=== PATIENT | female | born 1990 | race Caucasian/White ===

== ENCOUNTER 2018-09-20 12:59 | Inpatient (IN) ==
--- NOTE | 2018-09-20 13:07 | Emergency Department Note ---
Disposition Clinical Impression: DKA (diabetic ketoacidoses) Qualifiers: Diabetes mellitus type: type 1 Diabetes mellitus complication detail: without coma Qualified Code(s): E10.10 - Type 1 diabetes mellitus with ketoacidosis without coma Disposition: Admitted As Inpatient Condition: Fair Referrals: NONE,PCP [Primary Care Provider] - Forms: ED Satisfaction Letter, Work/School Release Time of Disposition: 17:17 General Adult HPI - General Stated complaint: Elevated Blood Glucose CP Time Seen by Provider: 09/20/18 13:03 Nursing Notes Reviewed: Yes Vital Signs Reviewed: Yes - History of Present Illness HPI Narrative: 28yo female presents from home for evaluation of elevated blood glucose and chest pain. Both onset this morning upon awakening. Patient typically wakes with blood glucose in the 60s. She was 409 this morning. She uses an insulin pump. Her site this morning was in the left lateral thigh and was on day 2; she had no issues with this site yesterday. She has had no issues with the tubing and the insulin she was using was not and had successfully controlled her blood sugars on days previous. She placed a new site on the right abdomen and her repeat blood glucose was in the 570's. She has polydipsia, polyuria, and nause. Urine dip ketones at home were elevated. Prior to arrival to this ED, BG was in the 460's. At no time today did patient give a correction bolus. She has been receiving her previously programmed basal rates. She was afraid to provide correction bolus with active insulin on board as she did not want to push herself into a low. She did not have any unusual meals last night. Her primary concern is DKA. Patient chest pain is left sided, sharp, stabbing, non-radiating. Worse with deep inspiration. She notes she pulled weeds yesterday in her yard. PMH: DM I on humalog insulin. Patient was previously diagnosed and treated as DM II by per PCP. Re-diagnosed as DM I by endocrinology. ROS: Pos: left sided CP, nausea, hyperglycemia, ketonuria, polydipsia, polyuria Neg: fever, chills, vomiting, abdominal pain, dyspnea, trauma, painful urination, concerns for skin infection or wound - Related Data Home Medications Medication Instructions Recorded Confirmed FLUoxetine HCl [Prozac] 40 mg PO DAILY 02/07/16 02/08/16 Previous Rx's Medication Instructions Recorded Blood-Glucose Meter, Drum-Type 1 each QID #1 kit 02/08/16 [Accu-Chek] metFORMIN [Glucophage] 500 mg PO BIDWM #60 tablet 02/08/16 Allergies Allergy/AdvReac Type Severity Reaction Status Date / Time No Known Allergies Allergy Verified 02/07/16 21:04 All systems ED: reviewed and negative except as stated. Review of Systems: As Per HPI Past Medical History - Past Medical History Medical history: Reports: no medical history Surgical history: Reports: Psychiatric history: Reports: depression SENIOR RECRUITMENT CONSULTANT history: Reports: no SENIOR RECRUITMENT CONSULTANT history - Social History Smoking Status: Current every day smoker Smokeless Tobacco Status: No Alcohol use: Reports: occasionally Drug use: Reports: none Physical Exam Vital Signs Reviewed General: Patient is alert, oriented, and in no acute distress; she is well- appearing, nontoxic, comfortable, conversant, pleasant. Head: atraumatic, normocephalic Eye: normal appearance, PERRL, EOMI, no scleral icterus, no conjunctival injection ENT: mucous membranes moist, normal external ear exam Neck: normal inspection, trachea midline, full ROM Chest: normal inspection, symmetric chest rise. Chest pain to palpation of left rib for at the costosternal margin. Respiratory: Good respiratory effort. Bilateral breath sounds are clear without wheezing, crackles, or rhonchi. Cardiovascular: Regular rate and rhythm. No clicks, rubs, gallops, or murmors. Normal heart sounds. Abdomen: Bowel sounds present normoactive. Abdomen is soft, nondistended, and nontender. No guarding or rebound. No organomegaly noted. Musculoskeletal: Spontaneously moving all extremities. Skin: warm, dry, intact. Neuro: GCS 15. No focal neurologic deficits observed. Psych: Patient's affect is appropriate for situation. Course Course Narrative: POC glucose on arrival: 421. Palpation of left for 4 costosternal margin exactly reproduces patient's chest pain. Osteopathicly suspect left rib 4 is anteriorly subluxed. Patient is castro. She has been outside; no personal or family history of adrenal problems. There is a family history of thyroid disease; will check TSH. EKG dated 09/20/18 at 13:43 interpreted as sinus tachycardia with rate 119. [place] 152, QRS 104, QTC 49. Normal axis. Nonspecific ST-T changes. No evidence of WPW, Brugada, or Wellens syndrome. No previous EKG for comparison. 2L 0.9%NS IVF now. Will await labs including potassium. Patient is in DKA. She clinically is well appearing. VBG pH is 7.2. Anion gap is 20. Serum ketones greater than 2.0. Potassium is 4.6. Will provide 40 mEq by mouth followed by 20 mEq within a 1 L bag run at 150% maintenance. WBC 25.0. UA not concernig for UTI. XR chest unremarkable. 1L IVF 0.9%NS with 20mEq K at 150% maint rate. Insulin drip at 0.1u/kg/hr I discussed with the patient and her mother in detail the meaning of DKA, pathophysiology as relates to serum glucose, insulin, T2 generation, and subsequent acidosis. I discussed microvascular disease associated with prolonged hyperglycemia and the need for appropriate glycemic control. All questions were answered. Patient continues to appear well and is of good spirits. I discussed the above with the admitting hospitalist, Dr. Enrique, who agrees to set the patient for continued evaluation monitoring of her DKA. Chest X-Ray 09/20/18 13:20 IMPRESSION: 1. No active pulmonary disease. D/ / Audi Malcolm MD / Audi Malcolm MD Interpreting Provider: Audi Malcolm MD Vital Signs Temperature 97.9 F 09/20/18 13:03 Pulse Rate 123 09/20/18 13:03 Respiratory Rate 18 09/20/18 13:03 Blood Pressure 121/80 09/20/18 13:03 O2 Sat by Pulse Oximetry 98 09/20/18 13:03 Temperature 97.9 F 09/20/18 13:03 Pulse Rate 116 09/20/18 16:59 Respiratory Rate 20 09/20/18 16:59 Blood Pressure 108/55 09/20/18 16:59 O2 Sat by Pulse Oximetry 97 09/20/18 16:59 Oxygen Delivery Oxygen Delivery Room Air Medical Decision Making - Lab Data Result diagrams: 09/20/18 13:35 09/20/18 13:35 Lab Results 09/20/18 09/20/18 09/20/18 Range/Units 13:33 13:33 13:35 WBC 25.0 H (4.3-11.1) K/mcL RBC 5.07 H (3.82-4.97) M/mcL Hgb 15.3 (11.5-15.4) g/dL Hct 47.8 H (35.3-44.9) % MCV 94.3 (83.0-100.0) fL MCH 30.2 (28.0-33.3) pg MCHC 32.0 (31.6-35.5) g/dL RDW 11.9 (11.5-14.5) % Plt Count 339 (140-400) K/mcL MPV 9.6 (9.4-12.4) fL Seg Neutrophils % 96.0 % Lymphocytes % 4.0 % Neutrophils # 24.0 H (1.6-8.9) K/mcL Lymphocytes # 1.0 (0.6-4.6) K/mcL Reactive Lymphocytes Present A (Not Present) Platelet Estimate Normal (Normal) VBG pH (7.32-7.42) pH Units VBG pCO2 (41-51) mmHg VBG pO2 (25-50) mmHg VBG HCO3 (21-27) mEq/L Sodium (136-145) mEq/L Potassium (3.5-5.1) mEq/L Chloride (98-107) mEq/L Carbon Dioxide (23-29) mEq/L BUN (6-20) mg/dL Creatinine (0.60-1.20) mg/dL Est GFR ( Amer) (> 60) Est GFR (Non-Af Amer) (> 60) BUN/Creatinine Ratio (6-26) Glucose (70-105) mg/dL Calculated Osmolality (280-300) Lactic Acid (0.5-2.2) mmol/L Calcium (8.6-10.3) mg/dL Troponin I (< 0.04) ng/mL Beta-Hydroxybutyric Acd (0.02-0.27) mmol/L TSH (0.340-5.600) mcIU/mL Urine Color Yellow (Yellow) Urine Clarity Clear (Clear) Urine pH 5.5 (5.0-8.0) pH Units Ur Specific [place] > 1.030 H (1.010-1.025) Urine Protein Negative (Neg-Trace) mg/dL Urine Glucose (UA) >=1000 H (Normal) mg/dL Urine Ketones >=160 H (Negative) mg/dL Urine Blood Negative (Negative) Urine Nitrite Negative (Negative) Urine Bilirubin Negative (Negative) Urine Urobilinogen Normal (Normal) mg/dL Ur Leukocyte Esterase Negative (Negative) Ur Culture Indicated? NO (NO) Urine Test Negative (Negative) Urine Opiates Screen (Qwcomq=606) ng/mL Ur Barbiturates Screen (Ycvnvx=128) ng/mL Ur Phencyclidine Scrn (Cutoff=25) ng/mL Ur Amphetamines Screen (Dqeidl=3013) ng/mL U Benzodiazepines Scrn (Wvvxki=408) ng/mL Urine Cocaine Screen (Cutoff= 300) ng/mL U Marijuana (THC) Screen (Cutoff = 50) ng/mL Ur Drug Screen Interp Person Notif of Crit 09/20/18 09/20/18 09/20/18 Range/Units 13:35 13:35 13:50 WBC (4.3-11.1) K/mcL RBC (3.82-4.97) M/mcL Hgb (11.5-15.4) g/dL Hct (35.3-44.9) % MCV (83.0-100.0) fL MCH (28.0-33.3) pg MCHC (31.6-35.5) g/dL RDW (11.5-14.5) % Plt Count (140-400) K/mcL MPV (9.4-12.4) fL Seg Neutrophils % % Lymphocytes % % Neutrophils # (1.6-8.9) K/mcL Lymphocytes # (0.6-4.6) K/mcL Reactive Lymphocytes (Not Present) Platelet Estimate (Normal) VBG pH 7.20 L* (7.32-7.42) pH Units VBG pCO2 44 (41-51) mmHg VBG pO2 80 H (25-50) mmHg VBG HCO3 17 L (21-27) mEq/L Sodium 136 (136-145) mEq/L Potassium 4.6 (3.5-5.1) mEq/L Chloride 97 L (98-107) mEq/L Carbon Dioxide 18 L (23-29) mEq/L BUN 19 (6-20) mg/dL Creatinine 0.86 (0.60-1.20) mg/dL Est GFR ( Amer) > 60 (> 60) Est GFR (Non-Af Amer) > 60 (> 60) BUN/Creatinine Ratio 22 (6-26) Glucose 448 H (70-105) mg/dL Calculated Osmolality 304 H (280-300) Lactic Acid (0.5-2.2) mmol/L Calcium 9.7 (8.6-10.3) mg/dL Troponin I (< 0.04) ng/mL Beta-Hydroxybutyric Acd > 2.00 H (0.02-0.27) mmol/L TSH 1.251 (0.340-5.600) mcIU/mL Urine Color (Yellow) Urine Clarity (Clear) Urine pH (5.0-8.0) pH Units Ur Specific [place] (1.010-1.025) Urine Protein (Neg-Trace) mg/dL Urine Glucose (UA) (Normal) mg/dL Urine Ketones (Negative) mg/dL Urine Blood (Negative) Urine Nitrite (Negative) Urine Bilirubin (Negative) Urine Urobilinogen (Normal) mg/dL Ur Leukocyte Esterase (Negative) Ur Culture Indicated? (NO) Urine Test (Negative) Urine Opiates Screen (Mqbfwk=742) ng/mL Ur Barbiturates Screen (Ypchib=605) ng/mL Ur Phencyclidine Scrn (Cutoff=25) ng/mL Ur Amphetamines Screen (Qpzmuc=5251) ng/mL U Benzodiazepines Scrn (Kihawz=299) ng/mL Urine Cocaine Screen (Cutoff= 300) ng/mL U Marijuana (THC) Screen (Cutoff = 50) ng/mL Ur Drug Screen Interp Person Notif of Amber PIERRE 09/20/18 09/20/18 09/20/18 Range/Units 14:35 14:35 16:13 WBC (4.3-11.1) K/mcL RBC (3.82-4.97) M/mcL Hgb (11.5-15.4) g/dL Hct (35.3-44.9) % MCV (83.0-100.0) fL MCH (28.0-33.3) pg MCHC (31.6-35.5) g/dL RDW (11.5-14.5) % Plt Count (140-400) K/mcL MPV (9.4-12.4) fL Seg Neutrophils % % Lymphocytes % % Neutrophils # (1.6-8.9) K/mcL Lymphocytes # (0.6-4.6) K/mcL Reactive Lymphocytes (Not Present) Platelet Estimate (Normal) VBG pH (7.32-7.42) pH Units VBG pCO2 (41-51) mmHg VBG pO2 (25-50) mmHg VBG HCO3 (21-27) mEq/L Sodium (136-145) mEq/L Potassium (3.5-5.1) mEq/L Chloride (98-107) mEq/L Carbon Dioxide (23-29) mEq/L BUN (6-20) mg/dL Creatinine (0.60-1.20) mg/dL Est GFR ( Amer) (> 60) Est GFR (Non-Af Amer) (> 60) BUN/Creatinine Ratio (6-26) Glucose (70-105) mg/dL Calculated Osmolality (280-300) Lactic Acid 1.6 (0.5-2.2) mmol/L Calcium (8.6-10.3) mg/dL Troponin I < 0.03 (< 0.04) ng/mL Beta-Hydroxybutyric Acd (0.02-0.27) mmol/L TSH (0.340-5.600) mcIU/mL Urine Color (Yellow) Urine Clarity (Clear) Urine pH (5.0-8.0) pH Units Ur Specific [place] (1.010-1.025) Urine Protein (Neg-Trace) mg/dL Urine Glucose (UA) (Normal) mg/dL Urine Ketones (Negative) mg/dL Urine Blood (Negative) Urine Nitrite (Negative) Urine Bilirubin (Negative) Urine Urobilinogen (Normal) mg/dL Ur Leukocyte Esterase (Negative) Ur Culture Indicated? (NO) Urine Test (Negative) Urine Opiates Screen Negative (Pkrtsi=958) ng/mL Ur Barbiturates Screen Negative (Quxcpb=434) ng/mL Ur Phencyclidine Scrn Negative (Cutoff=25) ng/mL Ur Amphetamines Screen Negative (Bvmioy=6740) ng/mL U Benzodiazepines Scrn Negative (Tymkme=554) ng/mL Urine Cocaine Screen Negative (Cutoff= 300) ng/mL U Marijuana (THC) Screen Negative (Cutoff = 50) ng/mL Ur Drug Screen Interp See Below Person Notif of Crit 09/20/18 Range/Units 17:04 WBC (4.3-11.1) K/mcL RBC (3.82-4.97) M/mcL Hgb (11.5-15.4) g/dL Hct (35.3-44.9) % MCV (83.0-100.0) fL MCH (28.0-33.3) pg MCHC (31.6-35.5) g/dL RDW (11.5-14.5) % Plt Count (140-400) K/mcL MPV (9.4-12.4) fL Seg Neutrophils % % Lymphocytes % % Neutrophils # (1.6-8.9) K/mcL Lymphocytes # (0.6-4.6) K/mcL Reactive Lymphocytes (Not Present) Platelet Estimate (Normal) VBG pH 7.25 L (7.32-7.42) pH Units VBG pCO2 24 L (41-51) mmHg VBG pO2 178 H (25-50) mmHg VBG HCO3 11 L (21-27) mEq/L Sodium (136-145) mEq/L Potassium (3.5-5.1) mEq/L Chloride (98-107) mEq/L Carbon Dioxide (23-29) mEq/L BUN (6-20) mg/dL Creatinine (0.60-1.20) mg/dL Est GFR ( Amer) (> 60) Est GFR (Non-Af Amer) (> 60) BUN/Creatinine Ratio (6-26) Glucose (70-105) mg/dL Calculated Osmolality (280-300) Lactic Acid (0.5-2.2) mmol/L Calcium (8.6-10.3) mg/dL Troponin I (< 0.04) ng/mL Beta-Hydroxybutyric Acd (0.02-0.27) mmol/L TSH (0.340-5.600) mcIU/mL Urine Color (Yellow) Urine Clarity (Clear) Urine pH (5.0-8.0) pH Units Ur Specific [place] (1.010-1.025) Urine Protein (Neg-Trace) mg/dL Urine Glucose (UA) (Normal) mg/dL Urine Ketones (Negative) mg/dL Urine Blood (Negative) Urine Nitrite (Negative) Urine Bilirubin (Negative) Urine Urobilinogen (Normal) mg/dL Ur Leukocyte Esterase (Negative) Ur Culture Indicated? (NO) Urine Test (Negative) Urine Opiates Screen (Nwhbqz=434) ng/mL Ur Barbiturates Screen (Dvxupv=778) ng/mL Ur Phencyclidine Scrn (Cutoff=25) ng/mL Ur Amphetamines Screen (Qsrjnr=8885) ng/mL U Benzodiazepines Scrn (Hiiwrv=465) ng/mL Urine Cocaine Screen (Cutoff= 300) ng/mL U Marijuana (THC) Screen (Cutoff = 50) ng/mL Ur Drug Screen Interp Person Notif of Crit
[2018-09-20] MEDS ORDERED: 0.9 % Sodium Chloride 1,000 ML IVC ONE ×2 (13:08→14:14)
[2018-09-20] MEDS ORDERED: Ondansetron 4 MG/2 ML VIAL IVP ONE (13:35)
[2018-09-20 13:44] LABS: Bilirubin,Urine Negative (Negative); Blood,Urine Negative (Negative); Clarity,Urine Clear (Clear); Color,Urine Yellow (Yellow); Glucose,Urine (UA) >=1000 mg/dL (Normal); Ketones,Urine >=160 mg/dL (Negative); Leukocyte Esterase,Urine Negative (Negative); Nitrite,Urine Negative (Negative); PH,Urine 5.5 pH Units (5.0-8.0); Protein,Urine Negative (Neg-Trace); Specific Gravity,Urine > 1.030 (1.010-1.025); Urobilinogen,Urine Normal (Normal)
[2018-09-20 13:54] LABS: Hematocrit 47.8 % (35.3-44.9); Hemoglobin 15.3 g/dL (11.5-15.4); Mean Corpuscular Hemoglobin 30.2 pg (28.0-33.3); Mean Corpuscular Volume 94.3 fL (83.0-100.0); Mean Platelet Volume 9.6 fL (9.4-12.4); Platelet Count 339 K/mcL (140-400); Red Blood Count 5.07 M/mcL (3.82-4.97); Red Cell Distribution Width 11.9 % (11.5-14.5)
[2018-09-20 13:56] LABS: VBG HCO3 17 mEq/L (21-27); VBG PCO2 44 mmHg (41-51); VBG PO2 80 mmHg (25-50)
--- NOTE | 2018-09-20 13:56 | Emergency Department Note ---
Disposition Clinical Impression: DKA (diabetic ketoacidoses) Qualifiers: Diabetes mellitus type: type 1 Diabetes mellitus complication detail: without coma Qualified Code(s): E10.10 - Type 1 diabetes mellitus with ketoacidosis without coma Disposition: Admitted As Inpatient Condition: Fair Time of Disposition: 14:20 General Adult HPI - General Chief complaint: ED General Medical Stated complaint: Elevated Blood Glucose CP Time Seen by Provider: 09/20/18 13:03 Source: patient, family Limitations: no limitations - History of Present Illness Pain Scale: 8 - Related Data Home Medications Medication Instructions Recorded Confirmed Insulin LISPRO [HumaLOG] 0 - 70 unit SQ DAILY PRN 09/20/18 09/20/18 Previous Rx's Medication Instructions Recorded Insulin Glargine,Hum.rec.anlog 30 unit SQ HS #5 insuln.pen 09/21/18 [Lantus Solostar] Insulin LISPRO [Humalog Kwikpen 1 unit SQ TIDAC #5 pkg 09/21/18 U-100] Allergies Allergy/AdvReac Type Severity Reaction Status Date / Time No Known Allergies Allergy Verified 09/20/18 21:43 Past Medical History - Past Medical History Medical history: Reports: diabetes Surgical history: Reports: Psychiatric history: Reports: depression HARBOR MASTER history: Reports: no HARBOR MASTER history - Social History Smoking Status: Current every day smoker Smokeless Tobacco Status: No Alcohol use: Reports: occasionally Drug use: Reports: none Physical Exam - General Limitations: no limitations General appearance: alert, in no apparent distress Course Vital Signs Temperature 97.9 F 09/20/18 13:03 Pulse Rate 123 09/20/18 13:03 Respiratory Rate 18 09/20/18 13:03 Blood Pressure 121/80 09/20/18 13:03 O2 Sat by Pulse Oximetry 98 09/20/18 13:03 Temperature 98.7 F 09/21/18 11:06 Pulse Rate 103 09/21/18 11:06 Respiratory Rate 16 09/21/18 11:06 Blood Pressure 115/59 09/21/18 11:06 O2 Sat by Pulse Oximetry 97 09/21/18 11:06 Oxygen Delivery Oxygen Delivery Room Air Medical Decision Making - Lab Data Result diagrams: 09/21/18 02:48 09/21/18 02:48 Lab Results 05/20/19 05/20/19 05/20/19 Range/Units 13:33 13:33 13:35 WBC 25.0 H (4.3-11.1) K/mcL RBC 5.07 H (3.82-4.97) M/mcL Hgb 15.3 (11.5-15.4) g/dL Hct 47.8 H (35.3-44.9) % MCV 94.3 (83.0-100.0) fL MCH 30.2 (28.0-33.3) pg MCHC 32.0 (31.6-35.5) g/dL RDW 11.9 (11.5-14.5) % Plt Count 339 (140-400) K/mcL MPV 9.6 (9.4-12.4) fL Seg Neutrophils % 96.0 % Lymphocytes % 4.0 % Neutrophils # 24.0 H (1.6-8.9) K/mcL Lymphocytes # 1.0 (0.6-4.6) K/mcL Reactive Lymphocytes Present A (Not Present) Platelet Estimate Normal (Normal) VBG pH (7.32-7.42) pH Units VBG pCO2 (41-51) mmHg VBG pO2 (25-50) mmHg VBG HCO3 (21-27) mEq/L Sodium (136-145) mEq/L Potassium (3.5-5.1) mEq/L Chloride (98-107) mEq/L Carbon Dioxide (23-29) mEq/L BUN (6-20) mg/dL Creatinine (0.60-1.20) mg/dL Est GFR ( Amer) (> 60) Est GFR (Non-Af Amer) (> 60) BUN/Creatinine Ratio (6-26) Glucose (70-105) mg/dL Calculated Osmolality (280-300) Lactic Acid (0.5-2.2) mmol/L Calcium (8.6-10.3) mg/dL Phosphorus (2.7-4.5) mg/dL Troponin I (< 0.04) ng/mL Beta-Hydroxybutyric Acd (0.02-0.27) mmol/L TSH (0.340-5.600) mcIU/mL Urine Color Yellow (Yellow) Urine Clarity Clear (Clear) Urine pH 5.5 (5.0-8.0) pH Units Ur Specific [place] > 1.030 H (1.010-1.025) Urine Protein Negative (Neg-Trace) mg/dL Urine Glucose (UA) >=1000 H (Normal) mg/dL Urine Ketones >=160 H (Negative) mg/dL Urine Blood Negative (Negative) Urine Nitrite Negative (Negative) Urine Bilirubin Negative (Negative) Urine Urobilinogen Normal (Normal) mg/dL Ur Leukocyte Esterase Negative (Negative) Ur Culture Indicated? NO (NO) Urine Test Negative (Negative) Urine Opiates Screen (Kojeya=286) ng/mL Ur Barbiturates Screen (Pxagdt=183) ng/mL Ur Phencyclidine Scrn (Cutoff=25) ng/mL Ur Amphetamines Screen (Cbktbi=3299) ng/mL U Benzodiazepines Scrn (Shdlzb=197) ng/mL Urine Cocaine Screen (Cutoff= 300) ng/mL U Marijuana (THC) Screen (Cutoff = 50) ng/mL Ur Drug Screen Interp Person Notif of Crit 09/20/18 09/20/18 09/20/18 Range/Units 13:35 13:35 13:50 WBC (4.3-11.1) K/mcL RBC (3.82-4.97) M/mcL Hgb (11.5-15.4) g/dL Hct (35.3-44.9) % MCV (83.0-100.0) fL MCH (28.0-33.3) pg MCHC (31.6-35.5) g/dL RDW (11.5-14.5) % Plt Count (140-400) K/mcL MPV (9.4-12.4) fL Seg Neutrophils % % Lymphocytes % % Neutrophils # (1.6-8.9) K/mcL Lymphocytes # (0.6-4.6) K/mcL Reactive Lymphocytes (Not Present) Platelet Estimate (Normal) VBG pH 7.20 L* (7.32-7.42) pH Units VBG pCO2 44 (41-51) mmHg VBG pO2 80 H (25-50) mmHg VBG HCO3 17 L (21-27) mEq/L Sodium 136 (136-145) mEq/L Potassium 4.6 (3.5-5.1) mEq/L Chloride 97 L (98-107) mEq/L Carbon Dioxide 18 L (23-29) mEq/L BUN 19 (6-20) mg/dL Creatinine 0.86 (0.60-1.20) mg/dL Est GFR ( Amer) > 60 (> 60) Est GFR (Non-Af Amer) > 60 (> 60) BUN/Creatinine Ratio 22 (6-26) Glucose 448 H (70-105) mg/dL Calculated Osmolality 304 H (280-300) Lactic Acid (0.5-2.2) mmol/L Calcium 9.7 (8.6-10.3) mg/dL Phosphorus (2.7-4.5) mg/dL Troponin I (< 0.04) ng/mL Beta-Hydroxybutyric Acd > 2.00 H (0.02-0.27) mmol/L TSH 1.251 (0.340-5.600) mcIU/mL Urine Color (Yellow) Urine Clarity (Clear) Urine pH (5.0-8.0) pH Units Ur Specific [place] (1.010-1.025) Urine Protein (Neg-Trace) mg/dL Urine Glucose (UA) (Normal) mg/dL Urine Ketones (Negative) mg/dL Urine Blood (Negative) Urine Nitrite (Negative) Urine Bilirubin (Negative) Urine Urobilinogen (Normal) mg/dL Ur Leukocyte Esterase (Negative) Ur Culture Indicated? (NO) Urine Test (Negative) Urine Opiates Screen (Ltzdsx=359) ng/mL Ur Barbiturates Screen (Rmrkrx=781) ng/mL Ur Phencyclidine Scrn (Cutoff=25) ng/mL Ur Amphetamines Screen (Zwhadu=2988) ng/mL U Benzodiazepines Scrn (Vpgxgr=426) ng/mL Urine Cocaine Screen (Cutoff= 300) ng/mL U Marijuana (THC) Screen (Cutoff = 50) ng/mL Ur Drug Screen Interp Person Notif of Amber PIERRE 09/20/18 09/20/18 09/20/18 Range/Units 14:35 14:35 16:13 WBC (4.3-11.1) K/mcL RBC (3.82-4.97) M/mcL Hgb (11.5-15.4) g/dL Hct (35.3-44.9) % MCV (83.0-100.0) fL MCH (28.0-33.3) pg MCHC (31.6-35.5) g/dL RDW (11.5-14.5) % Plt Count (140-400) K/mcL MPV (9.4-12.4) fL Seg Neutrophils % % Lymphocytes % % Neutrophils # (1.6-8.9) K/mcL Lymphocytes # (0.6-4.6) K/mcL Reactive Lymphocytes (Not Present) Platelet Estimate (Normal) VBG pH (7.32-7.42) pH Units VBG pCO2 (41-51) mmHg VBG pO2 (25-50) mmHg VBG HCO3 (21-27) mEq/L Sodium (136-145) mEq/L Potassium (3.5-5.1) mEq/L Chloride (98-107) mEq/L Carbon Dioxide (23-29) mEq/L BUN (6-20) mg/dL Creatinine (0.60-1.20) mg/dL Est GFR ( Amer) (> 60) Est GFR (Non-Af Amer) (> 60) BUN/Creatinine Ratio (6-26) Glucose (70-105) mg/dL Calculated Osmolality (280-300) Lactic Acid 1.6 (0.5-2.2) mmol/L Calcium (8.6-10.3) mg/dL Phosphorus (2.7-4.5) mg/dL Troponin I < 0.03 (< 0.04) ng/mL Beta-Hydroxybutyric Acd (0.02-0.27) mmol/L TSH (0.340-5.600) mcIU/mL Urine Color (Yellow) Urine Clarity (Clear) Urine pH (5.0-8.0) pH Units Ur Specific [place] (1.010-1.025) Urine Protein (Neg-Trace) mg/dL Urine Glucose (UA) (Normal) mg/dL Urine Ketones (Negative) mg/dL Urine Blood (Negative) Urine Nitrite (Negative) Urine Bilirubin (Negative) Urine Urobilinogen (Normal) mg/dL Ur Leukocyte Esterase (Negative) Ur Culture Indicated? (NO) Urine Test (Negative) Urine Opiates Screen Negative (Fpkqdw=347) ng/mL Ur Barbiturates Screen Negative (Gixfip=192) ng/mL Ur Phencyclidine Scrn Negative (Cutoff=25) ng/mL Ur Amphetamines Screen Negative (Syaywe=1239) ng/mL U Benzodiazepines Scrn Negative (Xawkzy=177) ng/mL Urine Cocaine Screen Negative (Cutoff= 300) ng/mL U Marijuana (THC) Screen Negative (Cutoff = 50) ng/mL Ur Drug Screen Interp See Below Person Notif of Crit 09/20/18 09/20/18 09/20/18 Range/Units 16:48 16:48 17:04 WBC (4.3-11.1) K/mcL RBC (3.82-4.97) M/mcL Hgb (11.5-15.4) g/dL Hct (35.3-44.9) % MCV (83.0-100.0) fL MCH (28.0-33.3) pg MCHC (31.6-35.5) g/dL RDW (11.5-14.5) % Plt Count (140-400) K/mcL MPV (9.4-12.4) fL Seg Neutrophils % % Lymphocytes % % Neutrophils # (1.6-8.9) K/mcL Lymphocytes # (0.6-4.6) K/mcL Reactive Lymphocytes (Not Present) Platelet Estimate (Normal) VBG pH 7.25 L (7.32-7.42) pH Units VBG pCO2 24 L (41-51) mmHg VBG pO2 178 H (25-50) mmHg VBG HCO3 11 L (21-27) mEq/L Sodium 133 L (136-145) mEq/L Potassium 4.4 (3.5-5.1) mEq/L Chloride 105 (98-107) mEq/L Carbon Dioxide 13 L (23-29) mEq/L BUN 19 (6-20) mg/dL Creatinine 0.67 (0.60-1.20) mg/dL Est GFR ( Amer) > 60 (> 60) Est GFR (Non-Af Amer) > 60 (> 60) BUN/Creatinine Ratio 28 H (6-26) Glucose 322 H (70-105) mg/dL Calculated Osmolality 291 (280-300) Lactic Acid (0.5-2.2) mmol/L Calcium 8.5 L (8.6-10.3) mg/dL Phosphorus 3.1 (2.7-4.5) mg/dL Troponin I (< 0.04) ng/mL Beta-Hydroxybutyric Acd (0.02-0.27) mmol/L TSH (0.340-5.600) mcIU/mL Urine Color (Yellow) Urine Clarity (Clear) Urine pH (5.0-8.0) pH Units Ur Specific [place] (1.010-1.025) Urine Protein (Neg-Trace) mg/dL Urine Glucose (UA) (Normal) mg/dL Urine Ketones (Negative) mg/dL Urine Blood (Negative) Urine Nitrite (Negative) Urine Bilirubin (Negative) Urine Urobilinogen (Normal) mg/dL Ur Leukocyte Esterase (Negative) Ur Culture Indicated? (NO) Urine Test (Negative) Urine Opiates Screen (Ukguqe=212) ng/mL Ur Barbiturates Screen (Vrjran=821) ng/mL Ur Phencyclidine Scrn (Cutoff=25) ng/mL Ur Amphetamines Screen (Obyicu=4619) ng/mL U Benzodiazepines Scrn (Vxnosv=248) ng/mL Urine Cocaine Screen (Cutoff= 300) ng/mL U Marijuana (THC) Screen (Cutoff = 50) ng/mL Ur Drug Screen Interp Person Notif of Crit Attestation Statement - Attestation Attestation: Resident Attestation: I examined this patient and my medical decision making was reviewed with the Resident Physician. I agree with the documented findings, disposition and treatment plan as described except to the extent set forth below. We independently had [id number] contact with the patient. Patient presenting for evaluation of elevated blood sugars. Patient has been diagnosed with type 1 diabetes. Been dealing with insulin pump the last 3 months. Patient noticed increased thirst and fatigue. No proceeding symptoms. Patient changed the site of her insulin pump and had no improvement in her blood sugars. Blood sugar found to be greater than 600. Patient's blood sugars typically run in the 200s. Patient has not been experiencing other symptoms other than urinary frequency. Does not remember last menstrual period. Family history of thyroid disease and has not had her thyroid checked. Patient will undergo further evaluation for DKA as well as look for underlying source.
[2018-09-20 14:15] LABS: BUN/Creatinine Ratio 22 (6-26); Blood Urea Nitrogen 19 mg/dL (6-20); Calcium 9.7 mg/dL (8.6-10.3); Carbon Dioxide 18 mEq/L (23-29); Chloride 97 mEq/L (98-107); Glucose 448 mg/dL (70-105); Osmolality,Calculated 304 (280-300); Potassium 4.6 mEq/L (3.5-5.1); Sodium 136 mEq/L (136-145); eGFR For Non-African Americans > 60 (> 60)
[2018-09-20] MEDS ORDERED: *HR* Dextrose 50 % in Water (Syg) 50 ML SYRINGE IVP PRN ×2 (14:27→15:59)
[2018-09-20] MEDS ORDERED: Insulin Human Regular 100 UNIT in 0.9 % Sodium Chloride 100 ML IVC SCH ×2 (14:30→21:15)
[2018-09-20] MEDS ORDERED: 0.9 % Sodium Chloride w KCl 20 MEQ/1,000 ML MLS IVC SCH (14:30)
[2018-09-20 14:36] LABS: Platelet Estimate Normal (Normal); Reactive Lymphocytes Present (Not Present)
[2018-09-20 15:38] LABS: Thyroid Stimulating Hormone 1.251 mcIU/mL (0.340-5.600)
[2018-09-20] MEDS ORDERED: Acetaminophen 325 MG TABLET PO PRN (15:56)
[2018-09-20] MEDS ORDERED: Ondansetron 4 MG/2 ML VIAL IVP PRN (15:56)
--- NOTE | 2018-09-20 15:56 | Internal Med History&Physical ---
Date of Encounter: 09/20/18 Time of Encounter: 15:48 Internal Medicine - H&P: HPI Chief complaint: Hyperglycemia Admitted From: Emergency Dept History of present illness: Rosalina Kidd is a 28 F w hx DM1 who p/w high sugars. Pt states she was diagnosed in 2017 w DM1 and was hospitalized at that time but not since. She recently switched from basal/bolus insulin to insulin pump, and says her sugars have been 180-220 for most of the time. However, last few days she's noticed increasing sugars. This morning when she checked, however, it was almost 600, and pt this morning felt kind of crummy and had chest pain. She took a urine ketone test which showed as dark/positive as possible, and pt's mother insisted she come to ED. The patient reports drinking lots of diet mountain dew lately due to heat outside, and she is a smoker. She denies fever, congestion, sore throat, cough, abd pain, N/V, dysuria, rash. In the ED, pt vitals HR 120s, RR 20, SBP 100s. Dry on exam. Labs w WBC 25, Hb 15, Cr 0.86, CO2 18, BG 450. UA w ketones. VBG pH 7.2. Started on insulin gtt and admitted. Past medical, surgical, social, and family histories reviewed and updated as below. Past Med Surg Social Fam HX - Past Medical History Medical history: diabetes Additional medical history: mom to twin boys that are 8 months old Psychiatric history: depression - Past Surgical History Surgical History: - Social History Smoking Status: Current every day smoker Smokeless Tobacco Status: No Alcohol use: occasionally Drug use: none - Family History Mother Living Status: Still Living Hx Family Cardiac Disorders: No Hx Family Respiratory Disorders: No Hx Family Cancer: No Hx Family GI Disorders: No Hx Family Endocrine Disorder: No Hx Family Neuromuscular Disorders: No Hx Family Neurologic Disorders: No Hx Family HEENT Disorders: No Hx Family Autoimmune Disorders: No Father Living Status: Still Living Hx Family Endocrine Disorder: No Paternal Grandfather Hx Family Endocrine Disorder: Yes (type 2 DM) Internal Medicine - H&P: Meds FLUoxetine HCl [Prozac] 40 mg PO DAILY 02/07/16 [History] Blood-Glucose Meter, Drum-Type [Accu-Chek] 1 each QID #1 kit 02/08/16 [Rx] metFORMIN [Glucophage] 500 mg PO BIDWM #60 tablet 02/08/16 [Rx] Allergy/AdvReac Type Severity Reaction Status Date / Time No Known Allergies Allergy Verified 02/07/16 21:04 All Systems PM: A 10-system review of systems was performed and is negative for pertinent findings except as documented above in the HPI. - Constitutional Vitals: Temp Pulse Resp BP Pulse Ox 97.9 F 124 22 106/48 97 09/20/18 13:03 09/20/18 14:50 09/20/18 14:50 09/20/18 14:50 09/20/18 14:50 Exam: General: NAD, good eye contact, relatively well appearing Head: Atraumatic, normocephalic. Face symmetric Eyes: EOMI, sclerae anicteric ENT: Mucous membranes dry. Normal oral mucosa and dentition. Trachea midline. No cervical lymphadenopathy Thoracic: No visible chest wall deformities. Normal breath sounds b/l, no wheezing or crackles Cardio: Normal S1 and S2, regular rate and rhythm, no murmurs Abdomen: Soft, nontender, nondistended. Bowel sounds present. Extremities: Warm, well perfused. DP pulses 2+ b/l. No edema Skin: Intact. No rashes, bruises, or ulcers Neuro: Awake, fully oriented. Good memory, concentration, attention. Speech fluent. Internal Med - H&P Results - Labs CBC & Chem 7: 09/20/18 13:35 09/20/18 16:48 Labs: Short CBC 09/20/18 Range/Units 13:35 WBC 25.0 H (4.3-11.1) K/mcL Hgb 15.3 (11.5-15.4) g/dL Hct 47.8 H (35.3-44.9) % Plt Count 339 (140-400) K/mcL Neutrophils # 24.0 H (1.6-8.9) K/mcL BMP 09/20/18 13:35 Sodium 136 Potassium 4.6 Chloride 97 L Carbon Dioxide 18 L BUN 19 Creatinine 0.86 Glucose 448 H Calcium 9.7 Cardiac Enzymes 09/20/18 Range/Units 14:35 Troponin I < 0.03 (< 0.04) ng/mL Urine 09/20/18 Range/Units 13:33 Urine Color Yellow (Yellow) Urine Clarity Clear (Clear) Urine pH 5.5 (5.0-8.0) pH Units Ur Specific [place] > 1.030 H (1.010-1.025) Urine Protein Negative (Neg-Trace) mg/dL Urine Glucose (UA) >=1000 H (Normal) mg/dL - ABG Interpretation ABG results: 09/20/18 13:50 VBG pH 7.20 L* VBG pCO2 44 VBG pO2 80 H VBG HCO3 17 L - Impressions ITS Impressions Chest X-Ray 09/20/18 13:20 IMPRESSION: 1. No active pulmonary disease. D/ / Audi Malcolm MD / Audi Malcolm MD Interpreting Provider: Audi Malcolm MD - Summary of Assessment and Plan Summary of Assessment and Plan: Rosalina Kidd is a 28 F w hx DM1 who p/w hyperglycemia, tachycardia, ketonuri a, and metabolic acidosis, consistent with DKA. DKA: unclear precipitating etiology but possibly from recent significant increase in caffeine and nicotine (stimulant) intake - MIVF per DKA protocol s/p 2L NS in ED - insulin gtt - replace K as needed DM1: insulin as above, will transition back to pump when gap closes PPx: ambulation FEN: ADA, MIVF as above Lines: PIV Consults: Code: Full Dispo: patient requires inpatient eval and management at this time. Anticipate 2-3 days. Will be homegoing
[2018-09-20] MEDS ORDERED: Insulin Regular, Human 100 UNIT/ML IV PRN ×2 (15:59→23:59)
[2018-09-20 16:42] LABS: Amphetamine Screen,Urine Negative ng/mL (Cutoff=1000); Barbiturate Screen,Urine Negative ng/mL (Cutoff=200); Benzodiazepines Screen,Urine Negative ng/mL (Cutoff=200); Cannabinoid Screen,Urine Negative ng/mL (Cutoff = 50); Cocaine Screen,Urine Negative ng/mL (Cutoff= 300); Opiate Screen,Urine Negative ng/mL (Cutoff=300); Phencyclidine Screen,Urine Negative ng/mL (Cutoff=25)
[2018-09-20 17:07] LABS: VBG HCO3 11 mEq/L (21-27); VBG PCO2 24 mmHg (41-51); VBG PH 7.25 pH Units (7.32-7.42); VBG PO2 178 mmHg (25-50)
[2018-09-20 17:24] LABS: BUN/Creatinine Ratio 28 (6-26); Blood Urea Nitrogen 19 mg/dL (6-20); Calcium 8.5 mg/dL (8.6-10.3); Carbon Dioxide 13 mEq/L (23-29); Chloride 105 mEq/L (98-107); Glucose 322 mg/dL (70-105); Osmolality,Calculated 291 (280-300); Potassium 4.4 mEq/L (3.5-5.1); Sodium 133 mEq/L (136-145); eGFR For Non-African Americans > 60 (> 60)
[2018-09-20] MEDS: D5% in 0.45% NACL w KCl 20 MEQ/1,000 ML MLS IVC PRN (20:44)
[2018-09-20 21:36] LABS: VBG HCO3 18 mEq/L (21-27); VBG PCO2 37 mmHg (41-51); VBG PH 7.29 pH Units (7.32-7.42); VBG PO2 176 mmHg (25-50)
[2018-09-20 21:48] LABS: BUN/Creatinine Ratio 24 (6-26); Blood Urea Nitrogen 16 mg/dL (6-20); Calcium 8.5 mg/dL (8.6-10.3); Carbon Dioxide 18 mEq/L (23-29); Chloride 109 mEq/L (98-107); Glucose 116 mg/dL (70-105); Osmolality,Calculated 282 (280-300); Potassium 4.3 mEq/L (3.5-5.1); Sodium 135 mEq/L (136-145); eGFR For Non-African Americans > 60 (> 60)
[2018-09-20] MEDS ORDERED: Insulin LISPRO 300 UNITS/3 ML VIAL SQ ONE (23:42)
[2018-09-21] MEDS: D5% in 0.45% NACL w KCl 20 MEQ/1,000 ML MLS IVC PRN (01:18)
[2018-09-21 04:05] LABS: Hematocrit 37.1 % (35.3-44.9); Mean Corpuscular HGB Conc 32.9 g/dL (31.6-35.5); Mean Corpuscular Volume 91.4 fL (83.0-100.0); Mean Platelet Volume 9.2 fL (9.4-12.4); Platelet Count 283 K/mcL (140-400); Red Blood Count 4.06 M/mcL (3.82-4.97); Red Cell Distribution Width 11.9 % (11.5-14.5)
[2018-09-21 04:06] LABS: Hemoglobin 12.2 g/dL (11.5-15.4)
[2018-09-21 04:20] LABS: BUN/Creatinine Ratio 21 (6-26); Blood Urea Nitrogen 12 mg/dL (6-20); Calcium 8.3 mg/dL (8.6-10.3); Carbon Dioxide 20 mEq/L (23-29); Chloride 109 mEq/L (98-107); Glucose 93 mg/dL (70-105); Magnesium 1.9 mg/dL (1.6-2.6); Osmolality,Calculated 281 (280-300); Potassium 3.9 mEq/L (3.5-5.1); Sodium 136 mEq/L (136-145); eGFR For Non-African Americans > 60 (> 60)
[2018-09-21 04:25] LABS: VBG HCO3 20 mEq/L (21-27); VBG PCO2 36 mmHg (41-51); VBG PH 7.34 pH Units (7.32-7.42); VBG PO2 189 mmHg (25-50)
[2018-09-21] MEDS ORDERED: Dextrose Gel 15 GM/37.5 ML TUBE PO PRN ×2 (04:43)
[2018-09-21] MEDS ORDERED: Insulin DETEMIR 100 UNIT/ML X5UNITS SQ ONE (04:43)
[2018-09-21] MEDS ORDERED: D5% in Water 1,000 ML IVC PRN (04:43)
[2018-09-21] MEDS ORDERED: *HR* Dextrose 50 % in Water (Syg) 50 ML SYRINGE IVP PRN (04:43)
[2018-09-21] MEDS: Insulin LISPRO 300 UNITS/3 ML VIAL SQ SCH ×2 (07:50→12:00)
--- NOTE | 2018-09-21 10:35 | Discharge Summary ---
- NOTES TO OUTPATIENT PROVIDER Notes to Outpatient Provider: Switched from pump back to basal/bolus insulin, needs Endo follow up Date of Encounter: 09/21/18 Time of Encounter: 10:31 Hospital course: Dear Doctors, I recently had the opportunity to care for this patient during their recent hospital stay at [facility]. Rosalina Kidd is a 28 F w hx DM1, smoker, who presented at the time of admission with hyperglycemia, chest pain, and headache, stating that her insulin pump did not seem to be working because her blood sugar was >500 and her urine ketone dipstick was positive. Denied any infectious symptoms and only substance is increased caffeine recently. In the ED, pt vitals HR 120s, RR 20, SBP 100s. Dry on exam. Labs w WBC 25, Hb 15, Cr 0.86, CO2 18, BG 450. UA w ketones. VBG pH 7.2. Given fluids and potassium, started on insulin gtt, and admitted. In the hospital, pt improved much faster than anticipated. Her acidosis and anion gap as well as ketosis all resolved on AM labs, and pt was restarted on basal/bolus insulins early this morning. Her presenting symptoms went away and patient maintained a blood glucose on day of discharge in the 200s Dx: DKA Pertinent tests/consults: Follow up: PCP 1 week, Endo as soon as possible Tests pending: A1c Med changes: - stop insulin pump - resume home lantus 35u qhs - resume home humalog coverage and sliding scale Mental status: awake, fully oriented Code status: Scorer Helper spent on discharge: 35 minutes It has been my pleasure participating in this patient's care. Please contact me with any questions or concerns regarding their hospital stay. Sincerely, Jerod Zacarias MD - Discharge Medications Prescriptions: New Insulin LISPRO [Humalog Kwikpen U-100] 1 unit SQ TIDAC #5 pkg Insulin Glargine,Hum.rec.anlog [Lantus Solostar] 30 unit SQ HS #5 insuln.pen Continued Insulin LISPRO [HumaLOG] 0 - 70 unit SQ DAILY PRN PRN Reason: PER INSULIN PUMP Home Medications: Insulin LISPRO [HumaLOG] 0 - 70 unit SQ DAILY PRN 09/20/18 [History] Insulin Glargine,Hum.rec.anlog [Lantus Solostar] 30 unit SQ HS #5 insuln.pen 09/21/18 [Rx] Insulin LISPRO [Humalog Kwikpen U-100] 1 unit SQ TIDAC #5 pkg 09/21/18 [Rx] Allergies/Adverse Reactions: Allergy/AdvReac Type Severity Reaction Status Date / Time No Known Allergies Allergy Verified 09/20/18 21:43 Date of admission: 09/20/18 18:17 Primary care physician: PCP NONE Consults: 09/20/18 15:59 Consult for Pharmacy Education [CONS] Routine Reason for Consult: dka Call Completed: No - Constitutional Vitals: Temp Pulse Resp BP Pulse Ox 98.3 F 103 18 114/61 97 09/21/18 07:11 09/21/18 07:11 09/21/18 07:11 09/21/18 07:11 09/21/18 07:11 Exam: General: NAD, good eye contact, relatively well appearing Thoracic: Normal breath sounds b/l, no wheezing or crackles Cardio: Normal S1 and S2, regular rate and rhythm Abdomen: Soft, nontender Extremities: Warm, well perfused. DP pulses 2+ b/l. No edema Skin: Intact. No rashes, bruises, or ulcers Neuro: Awake, fully oriented. Speech fluent. - Patient Status Disposition: Home, Self-Care Condition: Fair Functional capacity at discharge: independent ambulation Overall status at discharge: patient is back to baseline - Discharge Instructions Instructions: Diabetes Mellitus Type 2 in Adults (DC) Follow Up With: Akanksha Woodson SENIOR DEVELOPER [Advanced Practice Nurse] - 09/28/18 11:40 am - Diet and Activity Activity: resume usual activities as tolerated Diet: diabetic diet
[2018-09-21 11:10] VITALS: BP 115/59
--- NOTE | 2018-09-21 11:32 | Electrocardiograph Report ---
[facility] Test Date: 2018-09-20 Pat Name: Rosalina Kidd Department: [id number] Room: 2N01 Gender: F [employer]: : 1990 Requested By: Ervin Mcnair Order Number: [id number] Reading MD: Sawyer Diego Measurements Intervals [place] Rate: 119 P: 78 TX: 152 QRS: 96 QRSD: 104 T: 10 QT: 347 QTc: 489 Interpretive Statements Sinus tachycardia Borderline right axis deviation Borderline prolonged QT interval Electronically Signed On 09-21-2018 11:31:05 EDT by Sawyer Diego
[2018-09-21 17:14] LABS: Estimated Average Glucose 212 mg/dl
[2018-09-21] MEDS ORDERED: Insulin LISPRO 300 UNITS/3 ML VIAL SQ SCH (21:00)
== END 2018-09-21 12:52 | disposition home or self-care (01) | DRG 420 ==
LOC: EMEROOARM 12:59 → SUATTDRO 18:17 → 2NNU 18:17
PROVIDERS: ADMIT Internal Medicine; ATTEND Internal Medicine